=== PATIENT | male | born 1995 | race Two or more races ===

== ENCOUNTER 2021-02-15 19:23 | Emergency (ER) | payer OTHER ==
[~2021-02-15] VITALS: Ht 160 cm; Wt 72.7 kg
[2021-02-15] MEDS ORDERED: IBUPROFEN 200 MG TABLET. PO ONE (20:00)
[2021-02-15] MEDS ORDERED: HYDROcodone/APAP 10/325 1 TAB TABLET PO ONE (20:00)
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
[2021-02-15] MEDS ORDERED: CYCL10TA2 PO (22:56)
[2021-02-15] MEDS ORDERED: HYDR-2761 PO (22:56)
[2021-02-15] MEDS ORDERED: IBUP-1007 PO (22:56)
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
[2021-02-15 23:59] VITALS: BP 135/86
== END 2021-02-16 00:11 | disposition home or self-care (01) ==
LOC: ER 19:23
DX: R51.9 Headache, unspecified (principal); G89.11 Acute pain due to trauma; M54.2 Cervicalgia; M25.512 Pain in left shoulder; R07.81 Pleurodynia; M54.6 Pain in thoracic spine; V49.9XXA Car occupant (driver) (passenger) injured in unspecified traffic accident, initial encounter; Y93.89 Activity, other specified; Y92.488 Other paved roadways as the place of occurrence of the external cause; Y99.8 Other external cause status
CPT/HCPCS: 70450; 71111; 72125; 72128; 72131; 73030; 99285-25